=== PATIENT | female | born 1990 | race Asian ===

== ENCOUNTER 2023-04-16 11:22 | Emergency (ER) | payer BC ==
[2023-04-16] MEDS ORDERED: DIAZEPAM 5 MG TABLET ONE (11:51)
[2023-04-16] MEDS ORDERED: HYDROCODONE/APAP 5/325 MG TAB ONE (11:51)
--- NOTE | 2023-04-16 13:43 | RAD REPORT ---
EXAM DESCRIPTION: RAD - Lumbar Spine 3 Views - 04/16/2023 1:18 pm CLINICAL HISTORY: LOWER BACK PAIN COMPARISON: No comparisons FINDINGS/IMPRESSION: No acute fracture. Mild levoconvex curvature centered at L2. No significant foc al degenerative changes.
--- NOTE | 2023-04-16 14:41 | ER ---
Nurse's Notes [facility] Name: Agnes Schwartz Age: 33 yrs Sex: Female : 1990 Arrival Date: 04/16/2023 Time: :22 Bed 20 Private MD: Diagnosis: Low back pain Presentation: 04/16 11:34 Chief complaint: Patient states: R lower back pain since rolling over yesterday in bed. ll1 Coronavirus screen: Client denies travel out of the [place] in the last 14 days. At this time, the client does not indicate any symptoms associated with coronavirus-19. Ebola Screen: Patient denies travel to an Ebola-affected area in the 21 days before illness onset. Initial Sepsis Screen: Does the patient meet any 2 criteria? No. Patient's initial sepsis screen is negative. Does the patient have a suspected source of infection? Yes: Bone or joint infection. Risk Assessment: Do you want to hurt yourself or someone else? Patient reports no desire to harm self or others. Onset of symptoms was April 15, 2023. 11:34 Method Of Arrival: Wheelchair ll1 11:34 Acuity: KARISSA 4 ll1 Triage Assessment: 11:35 General: Appears uncomfortable, Behavior is calm, cooperative, appropriate for age. ll1 Pain: Complains of pain in R lower back Quality of pain is described as aching. Musculoskeletal: Circulation, motion, and sensation intact. Capillary refill < 3 seconds, Reports pain in R lower back. 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 - Social history:: Smoking status: Patient denies any tobacco usage or history of. Screenin:36 [facility] ED Fall Risk Assessment (Adult) Impaired Gait Yes (1 pt) Mobility Assist ll1 Device Used Yes (1 pt) Score/Fall Risk Level 3 or more points = High Risk Oriented to surroundings, Maintained a safe environment, Educated pt \T\ family on fall prevention, incl call for assistance when getting out of bed, Hourly rounding (assess needs \T\ fall precautionary measures) done, Used ambulatory aids as needed (educated on \T\ assisted with), Offered frequent toileting (1:1 observation), Utilized family, sitter, or virtual associate teacher as indicated. Abuse screen: Denies threats or abuse. Nutritional screening: No deficits noted. Tuberculosis screening: No symptoms or risk factors identified. Assessment: 11:50 Reassessment: No changes from previously documented assessment. Patient and/or family ll1 updated on plan of care and expected duration. Pain level reassessed. Patient is alert, oriented x 3, equal unlabored respirations, skin warm/dry/pink. 12:47 Reassessment: No changes from previously documented assessment. Patient and/or family hb updated on plan of care and expected duration. Pain level reassessed. gait slow but steady to restroom. 13:28 Reassessment: No changes from previously documented assessment. Patient and/or family ll1 updated on plan of care and expected duration. Pain level reassessed. Patient is alert, oriented x 3, equal unlabored respirations, skin warm/dry/pink. 14:00 Reassessment: No changes from previously documented assessment. Dr. Dillard informed not ll1 much pain relief with oral medications. 14:45 Reassessment: No changes from previously documented assessment. Patient and/or family ll1 updated on plan of care and expected duration. Pain level reassessed. Patient is alert, oriented x 3, equal unlabored respirations, skin warm/dry/pink. Vital Signs: 11:34 BP 142 / 89; Pulse 89; Resp 17; Temp 98.3; Pulse Ox 100% on R/A; Weight 86.18 kg; ll1 Height 5 ft. 6 in. ; Pain 4/10; 12:51 BP 110 / 76; Pulse 69; Resp 17; Pulse Ox 100% ; Pain 6/10; ll1 14:46 BP 101 / 51; Pulse 61; Resp 17; Pulse Ox 100% ; Pain 6/10; ll1 11:34 Body Mass Index 30.67 (86.18 kg, 167.64 cm) ll1 11:34 Pain Scale: Adult ll1 12:51 Pain Scale: Adult ll1 14:46 Pain Scale: Adult ll1 ED Course: 11:25 Patient arrived in ED. ts1 11:28 Brad Dillard DO is Attending Physician. ms3 11:28 Arm band placed on Patient placed in an exam room, on a stretcher. ll1 11:33 Lacey Mendoza, RN is Primary Nurse. ll1 11:35 Triage completed. ll1 11:36 Patient has correct armband on for positive identification. Bed in low position. Call ll1 light in reach. Client placed on continuous cardiac and pulse oximetry monitoring. NIBP monitoring applied. 12:52 No provider procedures requiring assistance completed. ll1 13:19 Lumbar Spine (3 Views) XRAY In Process Unspecified. EDMS 14:40 Ab Liu DO is Referral Physician. ms3 14:57 Provided Education on: n/a. ll1 14:57 Patient did not have IV access during this emergency room visit. ll1 Administered Medications: 11:50 Drug: HYDROcodone-acetaminophen PO 5 mg-325 mg 1 tabs {Note: pain 6/10 RASS 0.} Route: ll1 PO; 12:46 Follow up: Response: No adverse reaction; Pain is unchanged, physician notified; RASS: hb Alert and Calm (0) 11:50 Drug: Diazepam PO 5 mg {Note: pain 6/10, RASS 0.} Route: PO; ll1 12:47 Follow up: Response: No adverse reaction; Pain is unchanged, physician notified; RASS: hb Alert and Calm (0) Medication: 11:36 VIS not applicable for this client. ll1 Outcome: 14:41 Discharge ordered by MD. ms3 14:48 Patient left the ED. ll1 14:48 Discharged to home via wheelchair. ll1 14:48 Condition: stable 14:48 Discharge instructions given to patient, family, Instructed on discharge instructions, follow up and referral plans. no driving heavy equipment, medication usage, Demonstrated understanding of instructions, follow-up care, medications, Prescriptions given X 2. Signatures: Dispatcher [employer] EDMS Yessica Lozada RN RN Lacey Mendoza, SHOLA RN ll1 Brad Dillard DO DO ms3 Roseanne Garduno PAS PAS ts1
--- NOTE | 2023-04-16 14:41 | EDPHYS ---
Physician Documentation [facility] Name: Agnes Schwartz Age: 33 yrs Sex: Female : 1990 Arrival Date: 04/16/2023 Time: :22 Bed 20 Private MD: ED Physician Brad Dillard HPI: 04/16 11:40 This 33 yrs old Female presents to ER via Wheelchair with complaints of Back Pain. ms3 11:40 33-year-old female with past medical history of PCOS presents for right low back pain ms3 that began yesterday after rolling over in bed. Patient states pain is a 4/10. Patient states the pain is worse with movements. Patient states she took Advil yesterday without relief. Patient states her last menstrual period was 10 days ago. Patient is without urinary or bladder incontinence, numbness, weakness.. 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 - Social history:: Smoking status: Patient denies any tobacco usage or history of. ROS: 11:40 Constitutional: Negative for fever, and chills. Neck: Negative for injury, pain, and ms3 swelling, Cardiovascular: Negative for chest pain, and palpitations. Respiratory: Negative for shortness of breath, cough, wheezing, and pleuritic chest pain, Abdomen/GI: Negative for abdominal pain, nausea, vomiting, diarrhea, and constipation, MS/Extremity: Negative for injury and deformity, Skin: Negative for injury, rash, and discoloration. 11:40 Back: Positive for pain with movement. 11:40 All other systems are negative. Exam: 11:40 Constitutional: This is a well developed, well nourished patient who is awake, alert, ms3 and in no acute distress. Head/Face: Normocephalic, atraumatic. Chest/axilla: Normal chest wall appearance and motion. Nontender with no deformity. Cardiovascular: Regular rate and rhythm with a normal S1 and S2. No gallops, murmurs, or rubs. Normal PMI, no JVD. No pulse deficits. Respiratory: Lungs have equal breath sounds bilaterally, clear to auscultation and percussion. No rales, rhonchi or wheezes noted. No increased work of breathing, no retractions or nasal flaring. Abdomen/GI: Soft, non-tender, with normal bowel sounds. No distension or tympany. No guarding or rebound. No evidence of tenderness throughout. 11:40 Skin: Warm, dry with normal turgor. Normal color with no rashes, no lesions, and no evidence of cellulitis. MS/ Extremity: Pulses equal, no cyanosis. Neurovascular intact. Full, normal range of motion. 11:40 Back: pain, that is moderate, ROM is painful, with rotation to the right, with rotation to the left, muscle spasm, is appreciated in the right low back. Vital Signs: 11:34 BP 142 / 89; Pulse 89; Resp 17; Temp 98.3; Pulse Ox 100% on R/A; Weight 86.18 kg; ll1 Height 5 ft. 6 in. ; Pain 4/10; 12:51 BP 110 / 76; Pulse 69; Resp 17; Pulse Ox 100% ; Pain 6/10; ll1 14:46 BP 101 / 51; Pulse 61; Resp 17; Pulse Ox 100% ; Pain 6/10; ll1 11:34 Body Mass Index 30.67 (86.18 kg, 167.64 cm) ll1 11:34 Pain Scale: Adult ll1 12:51 Pain Scale: Adult ll1 14:46 Pain Scale: Adult ll1 MDM: 11:36 Patient medically screened. ms3 11:40 Differential diagnosis: Muscle spasm versus less likely UTIpatient without urinary ms3 symptoms versus less likely vertebral fracturepatient without midline tenderness or history of trauma. 13:26 Independent interpretation of the following test(s) in the Emergency Department X-Ray: ms3 My interpretation is Lumbar x-ray images reviewed by me do not show fracture, alignment normal.. 16:23 Data reviewed: vital signs, nurses notes, radiologic studies, plain films, and as a ms3 result, I will discharge patient. I considered the following discharge prescriptions or medication management in the emergency department Medications were administered in the Emergency Department. See MAR. Counseling: I had a detailed discussion with the patient and/or guardian regarding: the historical points, exam findings, and any diagnostic results supporting the discharge/admit diagnosis, radiology results, the need for outpatient follow up, to return to the emergency department if symptoms worsen or persist or if there are any questions or concerns that arise at home. Response to treatment: the patient's symptoms have mildly improved after treatment, and as a result, I will discharge patient. ED course: On reevaluation patient's pain improved, patient is alert and orient x4, no apparent distress, nontoxic, ambulatory in the emergency department, speaking full sentences. Patient is without bowel or bladder incontinence. Patient to follow-up with primary care physician in 2 to 3 days. Patient understands agrees with plan. All questions were answered. Return precautions discussed include worsening symptoms, or any other concerns. 04/16 12:53 Order name: Lumbar Spine (3 Views) XRAY; Complete Time: 14:16 ms3 Administered Medications: 11:50 Drug: HYDROcodone-acetaminophen PO 5 mg-325 mg 1 tabs {Note: pain 6/10 RASS 0.} Route: ll1 PO; 12:46 Follow up: Response: No adverse reaction; Pain is unchanged, physician notified; RASS: hb Alert and Calm (0) 11:50 Drug: Diazepam PO 5 mg {Note: pain 6/10, RASS 0.} Route: PO; ll1 12:47 Follow up: Response: No adverse reaction; Pain is unchanged, physician notified; RASS: hb Alert and Calm (0) Disposition Summary: 04/16/23 14:41 Discharge Ordered Location: Home ms3 Condition: Stable ms3 Diagnosis - Low back pain ms3 Followup: ms3 - With: Ab Liu, DO - When: 2 - 3 days - Reason: Recheck today's complaints Discharge Instructions: - Discharge Summary Sheet ms3 - Acute Back Pain, Adult ms3 Forms: - Work release form ll1 - Medication Reconciliation Form ms3 - Thank You Letter ms3 - Antibiotic Education ms3 - Prescription Opioid Use ms3 - Patient Portal Instructions ms3 Prescriptions: - Ibuprofen 600 mg Oral Tablet - take 1 tablet by ORAL route every 6 hours As needed take with food; 30 tablet; ms3 Refills: 0, Product Selection Permitted - Cyclobenzaprine 5 mg Oral Tablet - take 1 tablet by ORAL route 3 times per day As needed; 15 tablet; Refills: 0, ms3 Product Selection Permitted Signatures: Dispatcher [employer] Lacey Gautam RN RN ll1 Bard Dillard, DO DO ms3 Yessica Lozada RN Corrections: (The following items were deleted from the chart) 11:44 11:40 33-year-old female with past medical history of PCOS presents for right low back ms3 pain that began yesterday after rolling over in bed. Patient states pain is a 4/10. Patient states the pain is worse with movements. Patient states she took Advil yesterday without relief. Patient states her last menstrual period was 10 days ago. ms3 13:29 12:54 Test, Urine+UC.LAB.BRZ ordered. EDMS EDMS
[2023-04-16 14:53] VITALS: TEMP 98.3; O2SAT 100
[2023-04-16 14:54] VITALS: BP 110/76
== END 2023-04-16 14:48 | disposition home or self-care (01) ==
LOC: ER 11:22
DX: M54.50 Low back pain, unspecified (principal)
CPT/HCPCS: 72100; 99284